=== PATIENT | male | born 1985 | race Caucasian/White ===

== ENCOUNTER 2021-08-09 21:30 | Emergency (ER) | payer OTHER ==
[2021-08-09] MEDS ORDERED: SODIUM CHLORIDE 0.9% 1,000 ML IV STA (21:52)
[2021-08-09 22:14] VITALS: RESP 18; TEMP 98.6
[2021-08-09] MEDS ORDERED: diphenhydrAMINE 50 MG/ML 1 ML VIAL IVP STA (22:34)
--- NOTE | 2021-08-09 22:38 | ED ---
General Adult HPI - General Chief complaint: Fall Stated complaint: Fall Time Seen by Provider: 08/09/21 21:45 Source: patient, EMS Mode of arrival: EMS - History of Present Illness Initial comments: 35 year-old male patient presents to the emergency department for evaluation after having a syncopal episode. States that he was in the shower, when he was getting out his vision became fuzzy and next thing he knew he was on the floor. He is reporting headache and neck pain. Denies blurred or double vision. Denies chest pain or shortness of breath. Denies any cough, congestion, or fevers. Denies any numbness, tingling, weakness to his extremities. Denies any back pain or hip pain. Denies history of syncope. Patient denies any recent rash, abdominal pain, nausea, vomiting, diarrhea, constipation, hematuria, dysuria, urinary urgency, urinary frequency, or any other complaints. - Related Data Home Medications Medication Instructions Recorded Confirmed Acetaminophen Tab [Tylenol] 650 mg PO Q4H PRN 08/09/21 08/09/21 Calc/Mag/Zinc/D 1 tab PO TID PRN 08/09/21 08/09/21 Cephalexin [Keflex] 500 mg PO QID 08/09/21 08/09/21 Chlorpheniramine Maleate 4 mg PO Q4H PRN 08/09/21 08/09/21 [Chlor-Trimeton] Hyoscyamine Sulfate [Levsin] 0.125 mg PO QID PRN 08/09/21 08/09/21 Ibuprofen [Motrin Ib] 600 mg PO Q6H PRN 08/09/21 08/09/21 Loperamide HCl [Imodium A-D] 4 mg PO QID PRN 08/09/21 08/09/21 Sulfamethox-Tmp 800-160Mg [Bactrim 1 tab PO BID@0675,4450 08/09/21 08/09/21 DS 800-160 mg] cloNIDine HCL [Catapres] 0.1 mg PO Q4H PRN 08/09/21 08/09/21 ondansetron HCL [Zofran] 8 mg PO Q6H PRN 08/09/21 08/09/21 Allergies Allergy/AdvReac Type Severity Reaction Status Date / Time No Known Allergies Allergy Verified 08/09/21 22:35 Review of Systems ROS Statement: Those systems with pertinent positive or pertinent negative responses have been documented in the HPI. ROS Other: All systems not noted in ROS Statement are negative. Past Medical History Past Medical History: No Reported History Additional Past Medical History / Comment(s): abscess from IV drug use History of Any Multi-Drug Resistant Organisms: None Reported Past Surgical History: No Surgical Hx Reported Past Psychological History: No Psychological Hx Reported Smoking Status: Current every day smoker Past Alcohol Use History: None Reported Past Drug Use History: Heroin, Opiates General Exam General appearance: alert, in no apparent distress, other (This is a well- developed, well-nourished adult male in no acute distress.) Eye exam: Present: normal appearance, PERRL, EOMI. Absent: scleral icterus, conjunctival injection, nystagmus, periorbital swelling ENT exam: Present: normal exam, normal oropharynx, mucous membranes moist Neck exam: Present: normal inspection, other (Serious cervical tenderness, no bony step-off or deformity noted to for midline palpation of the posterior cervical spine.). Absent: tenderness, meningismus, full ROM (C-collar in place), lymphadenopathy Respiratory exam: Present: normal lung sounds bilaterally. Absent: respiratory distress, wheezes, rales, rhonchi, stridor Cardiovascular Exam: Present: regular rate, normal rhythm, normal heart sounds. Absent: systolic murmur, diastolic murmur, rubs, gallop, clicks GI/Abdominal exam: Present: soft, normal bowel sounds. Absent: distended, tenderness, guarding, rebound, rigid Neurological exam: Present: alert, oriented X3, CN II-XII intact Expanded Speech: Present: fluid speech Cranial nerves: EOM's Intact: Normal, Nystagmus: Normal Motor strength exam: RUE: 5, LUE: 5, RLE: 5, LLE: 5 Psychiatric exam: Present: normal affect, normal mood Skin exam: Present: warm, dry, intact, normal color. Absent: rash Course Vital Signs 08/09/21 08/10/21 22:10 00:57 Temperature 98.6 F Pulse Rate 65 66 Respiratory 18 18 Rate Blood Pressure 119/77 113/72 O2 Sat by Pulse 100 100 Oximetry EKG Findings - EKG Comments: EKG Findings:: EKG obtained at 2226 shows normal sinus rhythm with a ventricular 67, OH interval 150, QRS duration 98, QT 432, QTc 456. No evidence of ST el evation or depression. Medical Decision Making - Medical Decision Making 35-year-old male patient presented to the emergency department for evaluation after a syncopal episode. Reported headache and neck pain. He did have some cervical spinal tenderness. CT brain C-spine was negative. Labs reviewed and are unremarkable. EKG is unremarkable. The discharge back to [facility]. Return parameters were discussed in detail. He verbalizes understanding and agrees with this plan. My attending is Dr. Palomo. - Lab Data Result diagrams: 08/09/21 22:45 08/09/21 22:45 Lab Results 08/09/21 08/09/21 08/09/21 Range/Units 22:45 22:45 22:45 WBC 13.1 H (3.8-10.6) k/uL RBC 4.76 (4.30-5.90) m/uL Hgb 14.9 (13.0-17.5) gm/dL Hct 43.2 (39.0-53.0) % MCV 90.6 (80.0-100.0) fL MCH 31.2 (25.0-35.0) pg MCHC 34.5 (31.0-37.0) g/dL RDW 13.2 (11.5-15.5) % Plt Count 334 (150-450) k/uL MPV 7.8 Neutrophils % 85 % Lymphocytes % 10 % Monocytes % 3 % Eosinophils % 1 % Basophils % 0 % Neutrophils # 11.1 H (1.3-7.7) k/uL Lymphocytes # 1.4 (1.0-4.8) k/uL Monocytes # 0.4 (0-1.0) k/uL Eosinophils # 0.1 (0-0.7) k/uL Basophils # 0.0 (0-0.2) k/uL PT 10.1 (9.0-12.0) sec INR 0.9 (<1.2) APTT 25.2 (22.0-30.0) sec Sodium 139 (137-145) mmol/L Potassium 4.3 (3.5-5.1) mmol/L Chloride 103 (98-107) mmol/L Carbon Dioxide 23 (22-30) mmol/L Anion Gap 13 mmol/L BUN 14 (9-20) mg/dL Creatinine 0.81 (0.66-1.25) mg/dL Est GFR (CKD-EPI)AfAm >90 (>60 ml/min/1.73 sqM) Est GFR (CKD-EPI)NonAf >90 (>60 ml/min/1.73 sqM) Glucose 102 H (74-99) mg/dL Calcium 9.9 (8.4-10.2) mg/dL Magnesium 2.1 (1.6-2.3) mg/dL Total Bilirubin 0.4 (0.2-1.3) mg/dL AST 24 (17-59) U/L ALT 14 (4-49) U/L Alkaline Phosphatase 91 (38-126) U/L Troponin I (0.000-0.034) ng/mL Total Protein 8.0 (6.3-8.2) g/dL Albumin 4.2 (3.5-5.0) g/dL 08/09/21 Range/Units 22:45 WBC (3.8-10.6) k/uL RBC (4.30-5.90) m/uL Hgb (13.0-17.5) gm/dL Hct (39.0-53.0) % MCV (80.0-100.0) fL MCH (25.0-35.0) pg MCHC (31.0-37.0) g/dL RDW (11.5-15.5) % Plt Count (150-450) k/uL MPV Neutrophils % % Lymphocytes % % Monocytes % % Eosinophils % % Basophils % % Neutrophils # (1.3-7.7) k/uL Lymphocytes # (1.0-4.8) k/uL Monocytes # (0-1.0) k/uL Eosinophils # (0-0.7) k/uL Basophils # (0-0.2) k/uL PT (9.0-12.0) sec INR (<1.2) APTT (22.0-30.0) sec Sodium (137-145) mmol/L Potassium (3.5-5.1) mmol/L Chloride (98-107) mmol/L Carbon Dioxide (22-30) mmol/L Anion Gap mmol/L BUN (9-20) mg/dL Creatinine (0.66-1.25) mg/dL Est GFR (CKD-EPI)AfAm (>60 ml/min/1.73 sqM) Est GFR (CKD-EPI)NonAf (>60 ml/min/1.73 sqM) Glucose (74-99) mg/dL Calcium (8.4-10.2) mg/dL Magnesium (1.6-2.3) mg/dL Total Bilirubin (0.2-1.3) mg/dL AST (17-59) U/L ALT (4-49) U/L Alkaline Phosphatase (38-126) U/L Troponin I <0.012 (0.000-0.034) ng/mL Total Protein (6.3-8.2) g/dL Albumin (3.5-5.0) g/dL - Radiology Data Radiology results: report reviewed, image reviewed CT brain C-spine without contrast was obtained. Report was reviewed in its entirety. Impression by Dr. Ching shows negative computed tomography scan cervical spine. Negative computed tomography scan of the brain. 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 Disposition Clinical Impression: Syncope Disposition: HOME SELF-CARE Condition: Good Instructions (If sedation given, give patient instructions): Syncope (ED) Additional Instructions: Follow-up with the primary care physician for recheck in 1-2 days. Return for any new, worsening, or concerning symptoms. Is patient prescribed a controlled substance at d/c from ED?: No Referrals: None,Stated [Primary Care Provider] - 1-2 days Time of Disposition: 00:20
--- NOTE | 2021-08-09 22:44 | CT ---
EXAMINATION TYPE: CT brain cspine wo con DATE OF EXAM: 08/09/2021 COMPARISON: None HISTORY: syncope, fall CT DLP: 1361.7 mGycm Automated exposure control for dose reduction was used. Ventricles and sulci appear normal. There is no mass effect nor midline shift. There is no sign of in tracranial hemorrhage. Calvarium is intact. There is normal aeration of the mastoid sinuses. Cervical vertebra have normal spacing and alignment. Posterior elements are intact. Facet joints appe ar normal. IMPRESSION: Negative CT scan cervical spine. Negative CT scan of the brain. 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
[2021-08-09] MEDS ORDERED: KETOROLAC 15 MG/ML 1 ML VIAL IVP STA (23:06)
[2021-08-09 23:12] LABS: Basophils % (A) 0 %; Eosinophils # (A) 0.1 k/uL (0-0.7); Eosinophils % (A) 1 %; HCT 43.2 % (39.0-53.0); HGB 14.9 gm/dL (13.0-17.5); Lymphocytes # (A) 1.4 k/uL (1.0-4.8); Lymphocytes % (A) 10 %; MCH 31.2 pg (25.0-35.0); MCHC 34.5 g/dL (31.0-37.0); MCV 90.6 fL (80.0-100.0); Mean Platelet Volume 7.8; Monocytes # (A) 0.4 k/uL (0-1.0); Monocytes % (A) 3 %; Neutrophils # (A) 11.1 k/uL (1.3-7.7); Neutrophils % (A) 85 %; Platelet Count 334 k/uL (150-450); RBC 4.76 m/uL (4.30-5.90); RDW 13.2 % (11.5-15.5); WBC 13.1 k/uL (3.8-10.6)
[2021-08-09 23:32] LABS: INR 0.9 (<1.2); Partial Thromboplastin Time 25.2 sec (22.0-30.0); Prothrombin Time 10.1 sec (9.0-12.0)
[2021-08-09 23:40] LABS: ALT 14 U/L (4-49); AST 24 U/L (17-59); African American GFR (CKD) >90 (>60 ml/min/1.73 sqM); Albumin 4.2 g/dL (3.5-5.0); Alkaline Phosphatase 91 U/L (38-126); Anion Gap 13 mmol/L; Blood Urea Nitrogen 14 mg/dL (9-20); Calcium 9.9 mg/dL (8.4-10.2); Carbon Dioxide 23 mmol/L (22-30); Chloride 103 mmol/L (98-107); Glucose 102 mg/dL (74-99); Magnesium 2.1 mg/dL (1.6-2.3); Non-African American GFR(CKD) >90 (>60 ml/min/1.73 sqM); Potassium 4.3 mmol/L (3.5-5.1); Sodium 139 mmol/L (137-145); Total Bilirubin 0.4 mg/dL (0.2-1.3)
[2021-08-10 00:58] VITALS: BP 113/72; PULSE 66
== END 2021-08-10 00:58 | disposition home or self-care (01) ==
LOC: EC 21:30
DX: R55 Syncope and collapse (principal); R51.9 Headache, unspecified; M54.2 Cervicalgia; F17.200 Nicotine dependence, unspecified, uncomplicated; W01.198S Fall on same level from slipping, tripping and stumbling with subsequent striking against other object, sequela
CPT/HCPCS: 80053; 83735; 84484; 85025; 85610; 85730; 72125; 70450; 99284; 96374; 96375; 96361; J1200; J1885; 36415; 93005

== ENCOUNTER 2021-08-15 15:17 | Emergency (ER) | payer OTHER ==
[2021-08-15 16:07] VITALS: RESP 18; TEMP 99.3
[2021-08-15] MEDS ORDERED: LIDOCAINE-PRILOCAINE 2.5-2.5% CREAM 5 GM TUBE TOPICAL STA (17:40)
--- NOTE | 2021-08-15 17:43 | ED ---
General Adult HPI - General Source: patient, RN notes reviewed Mode of arrival: ambulatory Limitations: no limitations - History of Present Illness -: week(s) (1) Location: abdomen (Right lower abdomen) Radiation: non-radiation Severity scale (1-10): 7 Quality: constant Consistency: constant Improves with: none Worsens with: none Associated Symptoms: denies other symptoms Treatments Prior to Arrival: other (Bactrim and Keflex for 6 days) <Jair Smith - Last Filed: 08/15/21 22:29> <Mary Pereira - Last Filed: 08/17/21 00:17> - General Chief complaint: Skin/Abscess/Foreign Body Stated complaint: abscess on rt side Time Seen by Provider: 08/15/21 17:35 - History of Present Illness Initial comments: This is a well-appearing 35-year-old male that presents to the emergency room with an abscess to his right lower abdomen that he's had for a week. He was seen at [facility] and they attempted an incision and drainage and was unsuccessful. They put him on Keflex and Bactrim and he has been taking it for 6 days. He states that abscess is getting bigger. He denies any fevers, nausea, vomiting, or diarrhea. He is at [facility] for IV drug abuse and has been there one week. This abscess is a result of his IV drug use. He does smoke denies marijuana or other drug use at this time. He last used heroin 1 week ago prior to entering [place]. (Jair Smith) - Related Data Home Medications Medication Instructions Recorded Confirmed Acetaminophen Tab [Tylenol] 650 mg PO Q4H PRN 08/09/21 08/09/21 Calc/Mag/Zinc/D 1 tab PO TID PRN 08/09/21 08/09/21 Cephalexin [Keflex] 500 mg PO QID 08/09/21 08/09/21 Chlorpheniramine Maleate 4 mg PO Q4H PRN 08/09/21 08/09/21 [Chlor-Trimeton] Hyoscyamine Sulfate [Levsin] 0.125 mg PO QID PRN 08/09/21 08/09/21 Ibuprofen [Motrin Ib] 600 mg PO Q6H PRN 08/09/21 08/09/21 Loperamide HCl [Imodium A-D] 4 mg PO QID PRN 08/09/21 08/09/21 Sulfamethox-Tmp 800-160Mg [Bactrim 1 tab PO BID@0630,1730 08/09/21 08/09/21 DS 800-160 mg] cloNIDine HCL [Catapres] 0.1 mg PO Q4H PRN 08/09/21 08/09/21 ondansetron HCL [Zofran] 8 mg PO Q6H PRN 08/09/21 08/09/21 Allergies Allergy/AdvReac Type Severity Reaction Status Date / Time No Known Allergies Allergy Verified 08/15/21 16:08 Review of Systems ROS Other: All systems not noted in ROS Statement are negative. <Jair Smith - Last Filed: 08/15/21 22:29> ROS Other: All systems not noted in ROS Statement are negative. <Mary Pereira - Last Filed: 08/17/21 00:17> ROS Statement: Those systems with pertinent positive or pertinent negative responses have been documented in the HPI. Past Medical History Past Medical History: No Reported History Additional Past Medical History / Comment(s): abscess from IV drug use History of Any Multi-Drug Resistant Organisms: None Reported Past Surgical History: No Surgical Hx Reported Past Psychological History: No Psychological Hx Reported Smoking Status: Current every day smoker Past Alcohol Use History: None Reported Past Drug Use History: Heroin, Opiates <Jair Smith - Last Filed: 08/15/21 22:29> General Exam Limitations: no limitations General appearance: alert, in no apparent distress Head exam: Present: atraumatic, normocephalic, normal inspection Eye exam: Present: normal appearance, EOMI ENT exam: Present: normal exam, normal oropharynx, mucous membranes moist Neck exam: Present: normal inspection, full ROM. Absent: meningismus Respiratory exam: Present: normal lung sounds bilaterally. Absent: respiratory distress, wheezes, rales, rhonchi, stridor Cardiovascular Exam: Present: regular rate, normal rhythm, normal heart sounds. Absent: systolic murmur, diastolic murmur, rubs, gallop, clicks GI/Abdominal exam: Present: soft, other (Abscess to the right lower quadrant approximately 5 x 3 cm with an area of fluctuance) Extremities exam: Present: full ROM Neurological exam: Present: alert, oriented X3, normal gait Psychiatric exam: Present: normal affect, normal mood Skin exam: Present: warm, dry, intact, normal color. Absent: rash, cyanosis, diaphoretic <Jair Smith - Last Filed: 08/15/21 22:29> Course Vital Signs 08/15/21 08/15/21 16:03 19:03 Temperature 99.3 F 99.3 F Pulse Rate 75 77 Respiratory 18 18 Rate Blood Pressure 127/81 143/86 O2 Sat by Pulse 100 98 Oximetry Procedures - Incision & Drainage Consent Obtained: verbal consent Site: abdomen (rlq) Anesthetic Used: lidocaine 1% (emla cream) I&D Cleaning Method: Alcohol Wipe Scalpel Used: #11 Needle Aspiration Performed?: No Irrigation Performed?: No I&D Drainage Obtained: Pus, Blood Culture Obtained?: Yes Patient Tolerated Procedure: well <Jair Smith - Last Filed: 08/15/21 22:29> Medical Decision Making <Jair Smith - Last Filed: 08/15/21 22:29> <Mary Pereira - Last Filed: 08/17/21 00:17> - Medical Decision Making 35-year-old male presents to the emergency room with 1 week of abscess to his lower right abdomen. He was seen at [facility] and placed on Keflex and Bactrim. This abscess is from IV drug use. States his tetanus shot is up-to-date. He has no systemic symptoms of fever, nausea, vomiting or diarrhea. EMLA cream was applied and incision and drainage was performed successfully. Culture was sent. He was instructed to soak it with warm soapy water twice a day. Continue antibiotics and follow-up with primary care doctor and return to emergency room for any new or worsening symptoms. Case discussed with Dr. Pereira. (Jair Smith) I was available for consultation in the emergency department. The history and physical exam were done by the midlevel provider. I was consulted for this patients care. I reviewed the case with the midlevel provider and based on their presentation of the patient, I agree with the assessment, medical decision making and plan of care as documented. Chart was dictated using Xtone dictation software. Attempts were made to correct any dictation errors however some typographical errors may persist. Patient was seen during a national state of emergency due to the Covid-19 pandemic. (Mary Pereira) Disposition Is patient prescribed a controlled substance at d/c from ED?: No <Jair Smith - Last Filed: 08/15/21 22:29> <Mary Pereira - Last Filed: 08/17/21 00:17> Clinical Impression: Abscess, Encounter for incision and drainage procedure Disposition: HOME SELF-CARE Condition: Good Instructions (If sedation given, give patient instructions): Abscess Incision and Drainage (ED) Additional Instructions: Continue the antibiotics as previously prescribed. Warm soapy water compresses twice a day to promote drainage. Return to the emergency room with any new or worsening symptoms with the fever, increased redness and swelling or pain. Referrals: None,Stated [Primary Care Provider] - 1-2 days
[2021-08-15] MEDS ORDERED: LIDOCAINE 1% INJ 10MG/ML (20 ML MDV) SQ ONE (18:07)
[2021-08-15] MEDS ORDERED: BACITRACIN OINT 1 EACH PACKET TOPICAL ONE (18:18)
[2021-08-15 19:06] VITALS: BP 143/86; PULSE 77
== END 2021-08-15 19:05 | disposition home or self-care (01) ==
LOC: EC 15:17
DX: K65.1 Peritoneal abscess (principal); F17.200 Nicotine dependence, unspecified, uncomplicated; Z79.1 Long term (current) use of non-steroidal anti-inflammatories (NSAID); Z79.2 Long term (current) use of antibiotics; Z79.83 Long term (current) use of bisphosphonates
CPT/HCPCS: 10060; 87070; 87205; 99283